=== PATIENT | female | born 1990 | race Caucasian/White ===

== ENCOUNTER 2017-06-08 12:03 | Day surgery (SDC) | payer OTHER ==
[2017-05-24 11:59] VITALS: BP 126/83
[~2017-06-08] VITALS: Ht 157.5 cm; Wt 75.8 kg
[~2017-06-08 12:03] MED LIST: None at This Time
[2017-06-08] MEDS ORDERED: NAPR220C2 PO (12:28)
[2017-06-08] MEDS ORDERED: LACTATED RINGERS 1,000 ML IV SCH (12:29)
[2017-06-08] MEDS ORDERED: LIDOCAINE 1%, 2ML SQ PRN (12:30)
[2017-06-08 12:41] LABS: HCG UR LOT HCG7030192
[2017-06-08 12:51] LABS: HCG UR OBC PASS
[2017-06-08] MEDS ORDERED: MIDAZOLAM 1 MG/ML, 2ML ONE (13:44)
[2017-06-08] MEDS ORDERED: FENTANYL PF 100 MCG/2ML ONE ×2 (13:44)
[2017-06-08] MEDS ORDERED: PROPOFOL 10 MG/ML, 20ML ONE (13:45)
[2017-06-08] MEDS ORDERED: CEFAZOLIN 1,000 MG ONE ×2 (13:46)
[2017-06-08] MEDS ORDERED: NEOSTIGMINE 1 MG/ML, 10ML ONE (13:46)
[2017-06-08] MEDS ORDERED: GLYCOPYRROLATE 0.4 MG/2 ML, 2ML ONE (13:46)
[2017-06-08] MEDS ORDERED: SODIUM CHLORIDE 0.9% PF 10ML ONE (13:46)
[2017-06-08] MEDS ORDERED: KETOROLAC 30 MG/1 ML ONE (13:47)
[2017-06-08] MEDS ORDERED: ONDANSETRON 2MG/ML, 2ML ONE (13:47)
[2017-06-08] MEDS ORDERED: DEXAMETHASONE 4 MG/ML, 1ML ONE ×2 (13:47)
[2017-06-08] MEDS ORDERED: SCOPOLAMINE PATCH, 1.5MG PATCH.TD72 TD ONE ×2 (14:00→14:46)
[2017-06-08] MEDS ORDERED: THROMBIN 5,000 UNIT VIAL TP ONE (14:13)
[2017-06-08] MEDS ORDERED: BUPIVACAINE/PF 0.25% ONE (14:13)
[2017-06-08] MEDS ORDERED: EPINEPHRINE 1 MG/ML, 1ML ONE (14:14)
[2017-06-08] MEDS ORDERED: SILVER NITRATE STICK TP ONE (14:14)
[2017-06-08] MEDS ORDERED: hydrALAzine 20 MG/ML, 1ML IV PRN (14:30)
[2017-06-08] MEDS ORDERED: ACETAMINOPHEN 325 MG TABLET PO PRN (14:30)
[2017-06-08] MEDS ORDERED: PROMETHAZINE 25 MG/ML, 1ML IV PRN (14:30)
[2017-06-08] MEDS ORDERED: OXYcodone 5 MG/5 ML ORAL.SOL UDC PO PRN (14:30)
[2017-06-08] MEDS ORDERED: HYDROmorphone 1 MG/ML, 1ML IV PRN (14:30)
[2017-06-08] MEDS ORDERED: ONDANSETRON 2MG/ML, 2ML IVPush PRN (14:30)
[2017-06-08] MEDS ORDERED: MEPERIDINE/PF 25MG/0.5ML IVPush PRN (14:30)
[2017-06-08] MEDS ORDERED: FENTANYL PF 100 MCG/2ML IV PRN (14:30)
[2017-06-08] MEDS ORDERED: LABETALOL 5MG/ML, 20ML IV PRN (14:30)
[2017-06-08] MEDS ORDERED: ROCURONIUM 10 MG/ML,10ML ONE (14:46)
[2017-06-08] MEDS ORDERED: OXYcodone 5 MG/5 ML ORAL.SOL UDC ONE (15:48)
[2017-06-08] MEDS ORDERED: HYDROmorphone 1 MG/ML, 1ML ONE (15:48)
[2017-06-08] MEDS ORDERED: ACETAMINOPHEN 650 MG/20.3 ML UDC ONE (15:48)
[2017-06-08] MEDS ORDERED: PROMETHAZINE 25 MG/ML, 1ML ONE (15:59)
== END 2017-06-08 17:25 ==
LOC: OUT 12:03
PROVIDERS: ATTEND Obstetrics & Gynecology
DX: N97.1 Female infertility of tubal origin (principal); N80.9 Endometriosis, unspecified; G43.909 Migraine, unspecified, not intractable, without status migrainosus; Z98.890 Other specified postprocedural states; Z88.5 Allergy status to narcotic agent
CPT/HCPCS: 36415; 58662; 81025; 86850; 86900; J0171; J0690; J1100; J1170; J1885; J2250; J2405; J2704; J2710; J3010; J3490; J7120